=== PATIENT | female | born 1935 | race Asian ===

== ENCOUNTER 2017-06-12 19:49 | Emergency (ER) | payer MEDICARE ==
[~2017-06-12] VITALS: Ht 157.5 cm; Wt 54.5 kg
[2017-06-12] VITALS (8 sets, daily range): BP systolic 186–250; BP diastolic 62–103; PULSE 61–74; RESP 17–22; O2SAT 95–98
--- NOTE | 2017-06-12 20:08 | ED.REPORT ---
HPI-General Illness Date of Service Jun 12, 2017 ED Provider: George Keita DO The pt is a 81 year old Green[place]ic-speaking female with a hx of HTN presenting to the ED complaining of a "pressure-like" headache onset this morning. Associated symptoms include high blood pressure today. Per her son, she was complaining of a similar feeling 3 days ago. She claims that she only measures her BP occasionally when she is at home and that her normal BP is around 140/80. Her blood pressure upon arrival in the ED was 263/101. She claims to only take 81 mg ASA occasionally. She denies back pain, weakness, SOB, head trauma, diaphoresis, nausea, chills, fever, or vomiting. Nursing Notes Stated Complaint: HIGH BLOOD PRESSURE Chief Complaint: General Complaint Nursing Notes Reviewed: Yes Allergies: Coded Allergies: No Known Allergies (Unverified Allergy, Unknown, 10/02/14) Scheduled Aspirin (Aspirin) 81 Mg Tablet 81 MG PO DAILY Levothyroxine (Levothyroxine) 75 Mcg Tablet 75 MG PO DAILY Losartan Potassium (Losartan Potassium) 50 Mg Tablet 50 MG PO DAILY Pravastatin (Pravastatin) 20 Mg Tablet 20 MG PO DAILY General Time Seen by MD: 20:07 Chief Complaint Headache Hx Obtained From: Patient, Other family... Arrived By: Walk-in Sudden in Onset?: Yes Onset Occurred: 9 - 12 hours ago Symptom Duration: Since onset Recent Healthcare: No recent doctor visit, No recent hospitalization Similar Sx Previous: Yes Past Medical History Past Medical History Notes: PCP: Dr. Pete Past Medical History HTN Smoking History Never Smoker Social History Other Social History: Good social support Ambulatory Status Independent Review of Systems No head trauma Full Review of Systems Constitutional: Denies: Chills, Fever Respiratory: Denies: Shortness of breath GI: Denies: Nausea, Vomiting Musculoskeletal: Denies: Back pain, Neck pain Skin: Denies Diaphoresis Neurologic: Reports: Headache, Denies: Weakness Complete sys rev & neg: except as marked. Physical Exam Vital Signs Vital Signs Date Time Temp Pulse Resp B/P Pulse Ox O2 Delivery O2 Flow Rate FiO2 06/12/17 23:26 36.5 61 22 186/80 95 Room Air 06/12/17 23:15 61 22 186/80 95 Room Air 06/12/17 23:00 61 19 188/62 95 Room Air 06/12/17 22:45 62 19 190/78 96 Room Air 06/12/17 22:30 61 17 187/73 97 Room Air 06/12/17 22:15 62 19 200/90 97 Room Air 06/12/17 22:00 61 21 221/81 95 Room Air 06/12/17 19:52 36.5 74 18 250/103 98 Initial VS: Reviewed General/Constitutional: Well-developed, Well-nourished Head / Eyes: Atraumatic, Normocephalic Neck: Supple, Full range of motion Respiratory: Breath sounds normal, No respiratory distress Back: No CVA tenderness Extremities: No tenderness Skin: Warm, Dry Neurologic: Alert, Oriented Psychiatric: Mood/affect normal Interpretation & Diagnostics Lab Results Interpretation Result Diagram: 06/12/17205306/12/172053 Test 06/12/17 20:54 06/12/17 21:18 White Blood Count 4.0th/mm3 (3.8-10.1) Red Blood Count 3.96mil/mm3 (3.90-5.20) Hemoglobin 12.6g/dL (12.0-15.6) Hematocrit 38.0% (35.0-46.0) Mean Corpuscular Volume 96.0fL (81-100) Mean Corpuscular Hemoglobin 31.8pg (27.0-35.0) Mean Corpuscular Hemoglobin Concent 33.2% (32.0-37.0) Red Cell Distribution Width 14.1% (12.3-15.4) Platelet Count 177bil/L (150-400) Neutrophils (%) (Auto) 32.7% (40-74) Lymphocytes (%) (Auto) 48.6% (14-46) Monocytes (%) (Auto) 10.6% (4-12) Eosinophils (%) (Auto) 7.3% (0-5) Basophils (%) (Auto) 0.5% (0-3) Sodium Level 140mEq/L (134-144) Potassium Level 3.8mEq/L (3.5-5.2) Chloride Level 103mEq/L (97-108) Carbon Dioxide Level 20mmol/L (18-29) Blood Urea Nitrogen 14mg/dL (8-27) Creatinine 0.73mg/dL (0.57-1.00) Estimat Glomerular Filtration Rate 109mL/min (>59) Glucose Level 102mg/dL (60-99) Calcium Level 9.1mg/dL (8.5-10.1) Magnesium Level 2.2mg/dL (1.6-2.6) Total Bilirubin 0.3mg/dL (0.0-1.2) Aspartate Amino Transf (AST/SGOT) 24U/L (0-50) Alanine Aminotransferase (ALT/SGPT) 14U/L (0-32) Alkaline Phosphatase 89U/L (25-165) Troponin T 0.010ug/L (0.0-0.011) Pro-B-Type Natriuretic Peptide 316.7pg/mL (0-738) Total Protein 8.3g/dL (6.4-8.4) Albumin 4.3g/dL (3.4-5.0) Hold Hsieh Top Tube Received (Received) Hold Urine Received (Received) ECG Interpretation ECG Interpretation: Rate 66 Sinus pause Prolonged MI interval Probable left ventricular hypertrophy Prolonged MI interval Prolonged QT interval No significant ST change Time: 20:08 Interpreted by: ED physician Normal ECG Interpretation: Normal sinus rhythm X-Ray Chest Interpretation Chest Xray Interpretation: IMPRESSION: No acute cardiopulmonary disease. Dictated by: Tammi Bowden M.D. on 06/12/2017 at 21:21 View: Portable, 1 view Interpretation / Wet Read by: Interpret - Radiologist CT Head Interpretation IMPRESSION: 1. No acute intracranial abnormalities. 2. Cerebral volume loss and chronic microvascular ischemic changes. Dictated by: Tammi Bowden M.D. on 06/12/2017 at 21:23 Study: Head CT no contrast Interpretation / Wet Read by: Interpret - Radiologist Re-Eval/Medical Decision Med Decision/Clinical Course 81-year-old female with a history of hypertension that is normally well controlled to the tune of 140/80 on single medication, losartan presents with headache/head pressure that has been present all day as well as extreme hypertension, with the highest of 259/105 seen here. She was treated with labetalol 20 mg IV given in increments of 5 mg every 5 minutes, and also Nitropaste and her headache resolved and her blood pressure came into the 180s over 80s. Her exam is unremarkable for stroke. EKG and chest x-ray are normal. Patient was feeling much better and we plan to have her discharged with close follow-up with her PCP, as she may need to have some blood pressure medications changed. It is unclear the etiology of her hypertension at this time. I did not want to lower her blood pressure more than 25% so no further medications were given although pressures were still in the 180s at discharge. Time of Eval: 21:45 Re-Evaluation/Progress Note: Patient rechecked. Vitals checked. BP 229/79. Time of Eval: 22:45 Re-Evaluation/Progress Note: Patient rechecked. Discussed plan for discharge and recommended follow up with primary doctor in the morning. Discharge & Departure Primary Impression: Hypertensive emergency Additional Impression: Headache Headache type: unspecified Headache chronicity pattern: unspecified pattern Intractability: not intractable Qualified Code: R51 - Headache Disposition: Home Discharge Condition All VS Reviewed: Yes Condition: Improved Additional Instructions: Thank you for entrusting us with your care. Your radiology and lab results were reassuring. Follow up with your primary care provider in the next couple of days. Your blood pressure was lowered here with labetalol and nitroglycerin paste. Please continue your current blood pressure medications. Return to the emergency department for any worsening headache, fever, chills, nausea, vomiting, loss of consciousness, dizziness, or any new or concerning symptoms to you. Referrals: Edie Pete MD (PCP) [place] Attestation Portions of this note were transcribed by Jackie Braswell and Giovani Alberto. I, Dr. Keita personally performed the history, physical exam and medical decision -making; I reviewed and confirmed the accuracy of the information in the transcribed note. Signed by: Brayden Cabral, 06/12/2017 copies to: Edie Pete MD, Gary R DO Jun 12, 2017 20:08 Jun 12, 2017 20:46 Cookie Braswell Jun 12, 2017 23:30
[2017-06-12] MEDS ORDERED: PRAV20TA2 PO (20:43)
[2017-06-12] MEDS ORDERED: LOSA50TA37 PO (20:43)
[2017-06-12] MEDS ORDERED: LEVO75TA4 PO (20:43)
[2017-06-12] MEDS ORDERED: ASPI-973 PO (20:43)
[2017-06-12] MEDS ORDERED: Nitroglycerin 2% 1 Gm Ointment TOPICAL ONE (20:45)
[2017-06-12] MEDS ORDERED: Labetalol 5 mg/mL 20 mL Inj IVPUSH ONE (20:45)
[2017-06-12 21:05] LABS: BASOPHILS % (AUTO) 0.5 % (0-3); EOSINOPHILS % (AUTO) 7.3 % (0-5); MONOCYTES % (AUTO) 10.6 % (4-12); Mean Corpuscular Hemoglobin 31.8 pg (27.0-35.0); NEUTROPHILS % (AUTO) 32.7 % (40-74); Platelet Count 177 bil/L (150-400)
[2017-06-12 21:19] LABS: TROPONIN T 0.01 ug/L (0.0-0.011)
--- NOTE | 2017-06-12 21:24 | DRSVH ---
PROCEDURE: X-RAY CHEST ONE VIEW, PORTABLE ([id number]) INDICATIONS: hypertensive emergency TECHNIQUE: One view of the chest was acquired. COMPARISON: [facility], CR, CHEST 2VW, 10/31/2013, 12:34. [facility], CR, C HEST 1VW (PORTABLE), 10/02/2014, 12:07. FINDINGS: Surgical changes and devices: None. Lungs and pleura: No pleural effusions or pneumothorax. Lungs are clear. Mediastinum: Mediastinal contours appear normal. Heart size is normal. Aortic calcification consist ent with atherosclerosis. Bones and chest wall: No suspicious bony lesions. Overlying soft tissues appear unremarkable. IMPRESSION: No acute cardiopulmonary disease. Dictated by: Tammi Bowden M.D. on 06/12/2017 at 21:21 Approved by: Tammi Bowden M.D. on 06/12/2017 at 21:22
--- NOTE | 2017-06-12 21:27 | DRSVH ---
PROCEDURE: CT BRAIN WITHOUT CONTRAST ([id number]) INDICATIONS: headache with hypertensive emergency TECHNIQUE: Noncontrast 4.5 mm thick angled axial sections acquired from the foramen magnum to the vertex, with c oronal reformats. COMPARISON: [facility], CT, BRAIN W/O CONTRAST, 10/02/2014, 14:08. FINDINGS: Image quality: Excellent. CSF spaces: Basal cisterns are patent. No extra-axial fluid collections. The ventricles are symmet nakita in size and shape. Brain: No intracranial bleeds or masses. There is mild cerebral volume loss for age, with resultant ventricular and sulcal prominence. There are mild periventricular and deep white matter chronic sma ll vessel ischemic changes. Dystrophic ossifications in globus pallidus bilaterally again noted. Skull and face: Calvarium and visualized facial bones appear intact, without suspicious lesions. Sinuses: Visualized sinuses and mastoids are clear. IMPRESSION: 1. No acute intracranial abnormalities. 2. Cerebral volume loss and chronic microvascular ischemic changes. Dictated by: Tammi Bowden M.D. on 06/12/2017 at 21:23 Approved by: Tammi Bowden M.D. on 06/12/2017 at 21:24
[2017-06-12 21:30] LABS: Magnesium 2.2 mg/dL (1.6-2.6)
== END 2017-06-12 23:29 | disposition home or self-care (01) ==
LOC: SED 19:49
DX: I16.1 Hypertensive emergency (principal); R51 Headache; Z79.82 Long term (current) use of aspirin